=== PATIENT | male | born 1975 | race Caucasian/White ===

== ENCOUNTER 2020-09-03 00:45 | Emergency (ER) | payer OTHER ==
[~2020-09-03 00:45] MED LIST: ASPIRIN EC81 MG PO; COREG 3.125M3.125 MG PO; CRESTOR20 MG PO; LABETALOL HCL200 MG PO; LOTREL 10-20 M1 EACH PO; NITROQUIK SL0.4 MG SL; PERCOCET 5-3251 EACH PO; PLAVIX75 MG PO; PRILOSEC20 MG PO; PRINIVIL10 MG PO; PROBIOTIC1 EAC2 PO; VENTOLIN HFA IN18 GM INH; VITAMIN B-121000 MC1 PO; VITAMIN D32000 UNIT PO; ZOCOR40 MG PO
[2020-09-03 01:27] LABS: BASOPHIL 0.3 % (0-2); EOSINOPHIL 0.5 % (0-5); HCT 47.1 % (42.0-52.0); HGB 15.9 g/dl (13.2-18.0); LYMPHOCYTE 10.3 % (15-48); MCH 29.1 pg (25.0-31.0); MCHC 33.8 g/dL (32.0-36.0); MCV 86.3 fL (78.0-100.0); MONOCYTE 4.5 % (0-12); MPV 11.7 fL (6.0-9.5); NRBC 0; RBC 5.46 M/uL (4.70-6.00); RDW 12.6 % (11.5-14.0); WBC 15.3 K/uL (4.0-10.5)
[2020-09-03 01:38] LABS: LACTIC ACID 1.1 mmol/L (0.4-1.9)
[2020-09-03 01:49] LABS: PLT 141 K/uL (150-400)
[2020-09-03 02:10] LABS: ALBUMIN 3.6 g/dL (3.4-5.0); BILIRUBIN - TOTAL 0.4 mg/dL (0.2-1.0); POTASSIUM 4.5 mmol/L (3.5-5.1); TOTAL PROTEIN 6.6 g/dL (6.4-8.2)
[2020-09-03 02:57] LABS: BILIRUBIN NEGATIVE (NEGATIVE); BLOOD NEGATIVE Ery/uL (NEGATIVE); CLARITY CLEAR (CLEAR); COLOR YELLOW (YELLOW); GLUCOSE (U) NORMAL (NORMAL); LEUKOCYTES NEGATIVE Leu/uL (NEGATIVE); NITRITE NEGATIVE (NEGATIVE); PROTEIN NEGATIVE (NEGATIVE); SPECIFIC GRAVITY 1.015 (1.001-1.030); UROBILINOGEN 0.2 mg/dL (0.2-1.0)
[2020-09-03] MEDS ORDERED: BENTYL10 MG PO (04:11)
[2020-09-03] MEDS ORDERED: PERCOCET 5-3251 EACH PO (04:11)
== END 2020-09-03 04:27 | disposition home or self-care (01) ==
LOC: FER 00:45
PROVIDERS: Emergency Medicine Emergency Medical Services
DX: K56.7 Ileus, unspecified (principal); I25.2 Old myocardial infarction; I10 Essential (primary) hypertension; F17.210 Nicotine dependence, cigarettes, uncomplicated; Z95.5 Presence of coronary angioplasty implant and graft; Z79.899 Other long term (current) drug therapy; Z79.82 Long term (current) use of aspirin; Z79.02 Long term (current) use of antithrombotics/antiplatelets
CPT/HCPCS: 36415; 80053; 81003; 83605; 83690; 84145; 85025; J2270; J2405; J7030; Q9967

== ENCOUNTER 2021-11-25 01:25 | Emergency (ER) | payer OTHER ==
[~2021-11-25 01:25] MED LIST changes: +BENTYL10 MG PO
[2021-11-25 03:19] LABS: BASOPHIL 0.6 % (0-2); EOSINOPHIL 2.8 % (0-5); HCT 35.2 % (42.0-52.0); HGB 12.7 g/dl (13.2-18.0); MCH 29.6 pg (25.0-31.0); MCHC 36.1 g/dL (32.0-36.0); MCV 82.1 fL (78.0-100.0); MONOCYTE 8.6 % (0-12); MPV 11.4 fL (6.0-9.5); NEUTROPHIL 57.8 % (41-80); NRBC 0; PLT 143 K/uL (150-400); RBC 4.29 M/uL (4.70-6.00); RDW 11.9 % (11.5-14.0); WBC 6.2 K/uL (4.0-10.5)
[2021-11-25 03:25] LABS: BUN/CREAT RATIO (CALC) 18.6 RATIO; CREATININE 1.02 mg/dL (0.67-1.17); POTASSIUM 4.3 mmol/L (3.5-5.1)
[2021-11-25 03:36] LABS: FT4 (FREE T4) 0.8 ng/dL (0.76-1.46); MAGNESIUM 1.9 mg/dL (1.8-2.4)
[2021-11-25 03:56] LABS: CORONAVIRUS 2019 SARS-COV-2 NEGATIVE (NEGATIVE); INFLUENZA A NAA NEGATIVE (NEGATIVE)
== END 2021-11-25 04:29 | disposition home or self-care (01) ==
LOC: FER 01:25
PROVIDERS: Internal Medicine
DX: R07.89 Other chest pain (principal); R00.2 Palpitations; J44.9 Chronic obstructive pulmonary disease, unspecified; I25.2 Old myocardial infarction; Z87.891 Personal history of nicotine dependence; Z79.82 Long term (current) use of aspirin; Z20.822 Contact with and (suspected) exposure to COVID-19; Z28.310 Unvaccinated for COVID-19
CPT/HCPCS: 36415; 71045; 80048; 83735; 84145; 84439; 84443; 84484; 85025; 93005; 94640; 94664; U0002